=== PATIENT | female | born 1950 | race Two or more races ===

== ENCOUNTER → 2023-06-21 | Emergency (ER) | payer OTHER ==
[~2023-06-21] VITALS: Ht 162.6 cm; Wt 66.2 kg
[~2023-06-21] MED LIST: METFORMIN HCL500 M3 PO
== END | disposition left against medical advice (07) ==
LOC: ER 23:09
DX: Z53.21 Procedure and treatment not carried out due to patient leaving prior to being seen by health care provider (principal)